=== PATIENT | female | born 2005 | race Caucasian/White ===

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

== ENCOUNTER 2025-05-19 14:26 | Emergency (ER) | payer MEDICAID ==
[~2025-05-19] VITALS: Ht 160 cm; Wt 61.7 kg
[2025-05-19 14:33] VITALS: BP 134/89; PULSE 103; RESP 18; O2SAT 100
--- NOTE | 2025-05-19 14:43 | Physician Documentation ---
History of Present Illness Stated Complaint: COMPLICATIONS Primary Medical Doctor: MOTHER DENIES HPI Patient is a 20-year-old female that presents to the emergency department for evaluation of vaginal bleeding x1 day. Patient reports that she took a confirmed test on Wednesday at home. She reports that she had a miscarriage in December that was an unplanned at that time. He reports that this was a planned and she is very concerned. Reports she has light pink discharge that she thinks his blood at this time with mild abdominal cramping. Medication Reconciliation Allergies: Coded Allergies: No Known Allergies (Unverified , 02/13/12) Scheduled Vit/Iron Fumarate/FA ( Tablet), 1 TAB PO DAILY Past Medical History Past Medical History: No Pertinent History Past Surgical History: no surgical history Lives with: Family Lives In: Home Occupation: child Review of Systems ROS As stated above in the HPI, otherwise all systems are reviewed and negative. Physical Exam Physical Exam VITALS: Reviewed and as above. GENERAL: Alert, no apparent distress. HEENT: Normocephalic, atraumatic, PERRL, EOMI, dry mucosa, no erythema RESPIRATORY: Lungs clear, normal breath sounds, no respiratory distress. CHEST: No accessory muscle use, no retractions CV: Regular rate, rhythm, no edema, no murmur, No: JVD GI: Soft, non-tender, bowels sounds present, no rebound, guarding, or rigidity BACK: No CVA tenderness, or swelling MUSCULOSKELETAL No deformities, no edema SKIN: Warm and dry, no rash NEURO: Oriented x4, No motor or sensory deficit PSYCH: Normal mood and affect, no agitation Medical Decision Making Findings This patient presents with vaginal bleeding in the first trimester. Differential includes ectopic, IUP, threatened/inevitable , along with completed . Patient without a history of coagulopathy or infectious symptoms. Doubt alternate acute emergent pathology. Patient with TVUS that showed no evidence of sac at this time. HCG quantitative is 6. Could indicate very early stages of or resolving. Patient will repeat a test in 1 week she has had no heavy bleeding only light pink spotting today could be indicative implantation bleeding. Based on date of last menstrual period approximate gestation would be 6 weeks but patient is unsure as she has irregular ovulation. Patient did not want to wait for pending laboratory and UA results. The patient that we would be giving them a call with the results of the pending laboratory diagnostics. Postive UA. Patient called with results. Keflex sent to pharmacy. Differential Dx:Considerations: Include: AAA, -Complete, - Incomplete, -Inevitable, -Missed, -Threatened, Abruptio placentae, Angina/ID, Aortic dissection, Appendicitis, Bowel obstruction, Cholangitis, Cholelithasis, Constipation, Diverticular disease, Esophageal rupture, Esophagitis, Gastritis/PUD, Gastroenteritis, GI hemorrhage, Hernia, Hepatitis, Inflammatory BD, Ischemic bowel, Ovarian cyst/torsion, Pancreatitis, PID, Porphyria, Trauma, intraabdominal, Urinary obstruction, Urinary tract infection, Urolithiasis, Other Departure Disposition: 01 HOME / SELF CARE / HOMELESS Impression: Primary Impression: Complication of Additional Impression: Vaginal bleeding Condition: Stable Discharge Instructions: Vaginal Bleeding During , First Trimester Additional Instructions: This patient presents with vaginal bleeding in the first trimester. Differential includes ectopic, IUP, threatened/inevitable , along with completed . Patient without a history of coagulopathy or infectious symptoms. Doubt alternate acute emergent pathology. Patient with TVUS that showed no evidence of sac at this time. HCG quantitative is 6. Could indicate very early stages of or resolving. Patient will repeat a test in 1 week she has had no heavy bleeding only light pink spotting today could be indicative implantation bleeding. Based on date of last menstrual period approximate gestation would be 6 weeks but patient is unsure as she has irregular ovulation. Discussed with patient the possibility of being very early on in unable to see anything on ultrasound and needing an additional test next week. Patient discussed the possibility of resolving at this time but that it is too early to tell. 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 Will return to the emergency department with any worsening or recurrent symptoms heavy bleeding cramping nausea vomiting fevers or chills lightheadedness shortness of breath or any other additional concerning symptoms. Referrals: NO PRIMARY CARE PROVIDER (PCP) Prescriptions Cephalexin*Monohydrate* (Keflex*) 500 Mg Capsule 1 CAP PO QID for 7 Days, #28 CAP Prov: NORAH NOBLE 05/19/25 Education Educated: Patient Educated regarding: diagnosis, treatment, need for follow up Signature Scribe Signature: AScribed for Norah Noble by TAWANNA Wilder . 05/19/25 16:27 Attestation: Scribed for Norah Noble by TAWANNA Wilder . 05/19/25 16:27 NORAH NOBLE May 19, 2025 14:43
--- NOTE | 2025-05-19 15:31 | RADIOLOGY REPORT ---
INDICATION: 6 weeks , vaginal bleeding TECHNIQUE: Multiple real-time grayscale transabdominal sonographic images along with color and duplex Doppler of the uterus and ovaries were obtained. COMPARISON: US US OB on DOS: 12/23/24, US US OB on DOS: 11/17/24 FINDINGS: The uterus measures 7.2 x 3.4 x 4.9 cm. The endometrial stripe measures 0.3 cm. Right ovary measures 2.1 x 1.5 x 1.6 cm with normal Doppler color flow Left ovary measures 2.9 x 2.1 x 1.9 cm with normal Doppler color flow IMPRESSION: 1. Grossly unremarkable pelvic ultrasound. No intrauterine is visualized.
[2025-05-19 15:39] LABS: MEAN PLATELET VOLUME 8.7 FL (7.4-10.4); RED CELL DISTRIBUTION WIDTH 20.4 % (11.5-14.5)
[2025-05-19 15:40] LABS: LEUKOCYTE ESTERASE ,URINE NEGATIVE (Neg); NITRITES, URINE NEGATIVE (Neg); OCCULT BLOOD,URINE LARGE (Neg)
[2025-05-19 15:46] LABS: UA COLLECTION TYPE CLN CATCH MIDSTREAM
[2025-05-19 15:47] LABS: RENAL CELLS, URINE MODERATE /HPF; SQUAMOUS EPITHELIAL CELL,UR FEW /LPF (FEW)
[2025-05-19 15:48] LABS: AMORPHOUS URATES 1+; COARSE GRANULAR CAST 0-3 /LPF (NEGATIVE)
[2025-05-19 15:54] LABS: CREATININE 0.58 MG/DL (0.40-0.90); TOTAL CARBON DIOXIDE 25.9 MMOL/L (24-32); eCRCL 128 ML/MIN; eGFR > 90 ML/MIN
[2025-05-19 16:02] LABS: PLATELET ESTIMATE NORMAL
[2025-05-19 16:32] VITALS: TEMP 97.9
[2025-05-19 16:42] LABS: URINE HCG NEGATIVE (NEG)
[2025-05-19] MEDS ORDERED: CEPH-585 PO (23:54)
== END 2025-05-19 16:35 | disposition home or self-care (01) ==
LOC: ER 14:26
DX: O46.8X1 Other antepartum hemorrhage, first trimester (principal); Z79.899 Other long term (current) drug therapy
CPT/HCPCS: 36415; 76856; 80053; 81001; 81025; 84702; 85008; 85025; 87088; 99284